=== PATIENT | male | born 1965 | race Caucasian/White ===

== ENCOUNTER 2025-03-08 01:48 | Inpatient (IN) | payer OTHER ==
[2025-03-08 03:18] LABS: ABSOLUTE IMMATURE GRANULOCYTES 0.08 x10^3/uL (0.0-0.031); BASOPHILS # 0.04 x10^3/uL (0.01-0.08); EOSINOPHIL % 1.2 % (0.8-7.0); EOSINOPHILS # 0.11 x10^3/uL (0.04-0.54); HEMATOCRIT 27.8 % (40.1-51.0); HEMOGLOBIN 9.5 g/dL (13.7-17.5); MCHC 34.2 g/dl (32.3-36.5); MEAN CELL VOLUME 85.3 fl (79.0-92.2); MEAN PLT VOLUME 9.5 fl (9.4-12.4); MONOCYTE # 0.49 x10^3/uL (0.30-0.82); MONOCYTE % 5.4 % (5.3-12.2); PLATELET COUNT 248 x10^3/uL (163-337); RDW 13.2 % (12.2-16.1)
[2025-03-08 03:21] LABS: VENOUS BASE EXCESS -8.3 mmol/L (-2-2); VENOUS O2 SATURATION 34.5 % (70-80); VENOUS PCO2 39.8 mmHg (38-52); VENOUS PH 7.273 (7.310-7.410)
[2025-03-08] MEDS: SODIUM CHLORIDE 1,000 ML IV STA ×2 (03:21→05:46)
[2025-03-08 03:22] LABS: EPI CELLS 1 /uL (0-25.1); HYALINE CASTS 0 /uL (0-3.1); PH,URINE 5.5 (5.0-8.0); URINE APPEARANCE CLEAR; URINE BACTERIA 3 /uL (0-1359); URINE BILIRUBIN NEGATIVE (NEGATIVE); URINE COLOR YELLOW; URINE GLUCOSE (UA) 3+ (NEGATIVE); URINE KETONE NEGATIVE (NEGATIVE); URINE LEUK ESTERASE NEGATIVE (NEGATIVE); URINE NITRITE NEGATIVE (NEGATIVE); URINE PROTEIN 1+ (NEGATIVE); URINE RBC 5 /uL (0-23.9); URINE UROBILINOGEN 0.2 mg/dL (0.2-1.0); URINE WBC 3 /uL (0-25.8)
[2025-03-08 03:27] LABS: INR 1.01 (0.83-1.09); PROTHROMBIN TIME (PATIENT) 11.1 SEC (9.7-13.0)
[2025-03-08 03:30] LABS: ACTIVATED PTT 26.5 SECONDS (25.2-36.5)
[2025-03-08] MEDS ORDERED: INSULIN REGULAR HUMAN 100 UNITS/ML *VIAL ONE ×2 (03:57→04:45)
[2025-03-08 03:59] LABS: CHLORIDE 99 mmol/L (98-107); POTASSIUM 4.7 mmol/L (3.5-5.1); SODIUM 130 mmol/L (136-145)
[2025-03-08 04:01] LABS: ANION GAP 11 mmol/L (4-13); BLOOD UREA NITROGEN 28.3 mg/dL (7-18); CALCIUM 9.7 mg/dL (8.5-10.1); CO2 20 mmol/L (21-32)
[2025-03-08 04:02] LABS: ALBUMIN 3.7 g/dl (3.4-5.0); MAGNESIUM 1.6 mg/dL (1.8-2.4)
[2025-03-08] MEDS: INSULIN REGULAR HUMAN 100 UNITS/ML *VIAL IVPUSH ONE (04:03)
[2025-03-08 04:04] LABS: SGPT/ALT 24 U/L (13-61)
[2025-03-08 04:05] LABS: CREATININE 1.9 mg/dL (0.55-1.3); PHOSPHOROUS 3.5 mg/dL (2.5-4.9); SGOT/AST 13 U/L (15-37)
[2025-03-08 04:06] LABS: BILIRUBIN,TOTAL 0.4 mg/dL (0.2-1); TOT PROT 6.8 g/dl (6.4-8.2)
[2025-03-08 04:08] LABS: ALK PHOS 168 U/L (45-117)
[2025-03-08 04:10] LABS: GLUCOSE,RANDOM 683 mg/dL (74-106)
[2025-03-08] MEDS ORDERED: MAGNESIUM SULFATE IN WATER 2 GM/50 ML IVPB IVPB ONE (04:45)
[2025-03-08] MEDS: MAGNESIUM SULF 50% (8.12 MEQ/2 ML-1 GM VIAL) IVPB ONE (04:51)
[2025-03-08] MEDS: INSULIN REGULAR HUMAN 100 UNITS/ML *VIAL SQ ONE (04:51)
[2025-03-08 06:31] LABS: CHLORIDE 105 mmol/L (98-107); SODIUM 134 mmol/L (136-145)
[2025-03-08 06:32] LABS: CALCIUM 8.9 mg/dL (8.5-10.1)
[2025-03-08 06:33] LABS: ANION GAP 11 mmol/L (4-13); BLOOD UREA NITROGEN 25.7 mg/dL (7-18); CO2 19 mmol/L (21-32)
[2025-03-08 06:36] LABS: CREATININE 1.6 mg/dL (0.55-1.3)
[2025-03-08] MEDS ORDERED: ACETAMINOPHEN 325 MG TABLET (FP) PO PRN ×2 (06:36→08:28)
[2025-03-08 06:53] LABS: GLUCOSE,RANDOM 500 mg/dL (74-106)
[2025-03-08 08:31] LABS: IRON SERUM 41 ug/dL (50-175)
[2025-03-08 08:32] LABS: TOTAL IRON BINDING CAPACITY 215 ug/dL (250-450)
[2025-03-08 08:35] LABS: LDH 120 U/L (87-246)
[2025-03-08] MEDS ORDERED: THIAMINE 100 MG TABLET ONE (08:58)
[2025-03-08] MEDS ORDERED: LOSARTAN POTASSIUM 50 MG TABLET ONE (08:58)
[2025-03-08] MEDS ORDERED: NIFEdipine E.R 60 MG TABLET PO ONE (08:59)
[2025-03-08] MEDS ORDERED: FOLIC ACID 1 MG TABLET (FP) ONE (08:59)
[2025-03-08] MEDS: LOSARTAN POTASSIUM 50 MG TABLET PO SCH (09:11)
[2025-03-08] MEDS: FOLIC ACID 1 MG TABLET (FP) PO SCH (09:11)
[2025-03-08] MEDS: SODIUM CHLORIDE 0.45% 1,000 ML IV SCH (09:11)
[2025-03-08] MEDS: THIAMINE 100 MG TABLET PO SCH (09:12)
[2025-03-08] MEDS: INSULIN ASPART SLIDING SCALE (NOVOLOG) 1 VIAL SQ SCH (09:12)
[2025-03-08] MEDS: POLYETHYLENE GLYCOL (HEALTHYLAX) 3350 17 GM PACKET PO SCH (09:12)
[2025-03-08] MEDS: NIFEdipine E.R 60 MG TABLET PO SCH (09:12)
[2025-03-08] MEDS ORDERED: INSULIN ASPART SLIDING SCALE (NOVOLOG) 1 VIAL SQ ONE (09:19)
[2025-03-08 11:30] VITALS: RESP 18
[2025-03-08] MEDS: HEPARIN NA (PORCINE) 5,000 UNITS/ML 1ML VIAL SQ SCH (14:57)
[2025-03-08] MEDS: INSULIN GLARGINE (LANTUS) 100 UNITS/ML UNITS SQ SCH (16:56)
[2025-03-08 17:45] LABS: METHADONE, UR NEGATIVE (NEGATIVE); URINE BENZODIAZEPINES NEGATIVE (NEGATIVE)
[2025-03-08 17:46] LABS: PHENCYCLIDINE,URINE NEGATIVE (NEGATIVE)
[2025-03-08 17:47] LABS: COCAINE, UR NEGATIVE (NEGATIVE); OPIATES, URI NEGATIVE (NEGATIVE); URINE AMPHETAMINES NEGATIVE (NEGATIVE); URINE BARBITURATES NEGATIVE (NEGATIVE)
[2025-03-09 08:14] LABS: ABSOLUTE IMMATURE GRANULOCYTES 0.07 x10^3/uL (0.0-0.031); BASOPHILS # 0.06 x10^3/uL (0.01-0.08); EOSINOPHIL % 5.6 % (0.8-7.0); EOSINOPHILS # 0.49 x10^3/uL (0.04-0.54); HEMATOCRIT 30.2 % (40.1-51.0); HEMOGLOBIN 10.2 g/dL (13.7-17.5); MCHC 33.8 g/dl (32.3-36.5); MEAN CELL VOLUME 84.1 fl (79.0-92.2); MEAN PLT VOLUME 9.1 fl (9.4-12.4); MONOCYTE # 0.51 x10^3/uL (0.30-0.82); MONOCYTE % 5.9 % (5.3-12.2); PLATELET COUNT 270 x10^3/uL (163-337)
[2025-03-09 08:30] LABS: CALCIUM 9.7 mg/dL (8.5-10.1)
[2025-03-09 08:31] LABS: BLOOD UREA NITROGEN 16.1 mg/dL (7-18); MAGNESIUM 1.6 mg/dL (1.8-2.4)
[2025-03-09 08:34] LABS: CREATININE 1.4 mg/dL (0.55-1.3); PHOSPHOROUS 2.9 mg/dL (2.5-4.9)
[2025-03-09] MEDS ORDERED: INSULIN ASPART SLIDING SCALE (NOVOLOG) 1 VIAL SQ ONE (10:50)
[2025-03-09 15:51] VITALS: BMI 22.1
[2025-03-11] MEDS: PNEUMOC 20-VAL CONJ-DIP CRM/PF 0.5 ML SYRINGE IM ONE (13:27)
[2025-03-11 15:57] VITALS: BP 147/85; PULSE 84; TEMP 97.7
== END 2025-03-11 16:15 | disposition home or self-care (01) | DRG 101 ==
LOC: JER 01:48 → JERBED 04:56 → J5S 09:26
PROVIDERS: ADMIT Family Medicine; ATTEND Family Medicine
DX: R56.9 Unspecified convulsions (principal); E11.65 Type 2 diabetes mellitus with hyperglycemia; I10 Essential (primary) hypertension; F12.20 Cannabis dependence, uncomplicated; D64.9 Anemia, unspecified
CPT/HCPCS: 36415; 70450-TC; 70551-TC; 71045-TC-FY; 80048; 80053; 80061; 80307; 81003; 82010; 82728; 82803; 82962; 83036; 83540; 83550; 83605; 83615; 83735; 84100; 84443; 85025; 85610; 85730; 87086; 93005; 93010; 95816; 97116-GP; 97161-GP; 99285-25